=== PATIENT | female | born 2000 | race Hispanic/Latino ===

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

== ENCOUNTER → 2022-06-18 | Outpatient (CLI) | payer BC, MEDICAID ==
[~2022-06-18] MED LIST changes: +DIPH-1242 PO
== END | disposition home or self-care (01) ==
LOC: SHCH 11:41
PROVIDERS: ATTEND Internal Medicine
DX: R00.2 Palpitations (principal)
CPT/HCPCS: 93306